=== PATIENT | male | born 1990 | race Caucasian/White ===

== ENCOUNTER 2023-07-09 12:35 | Emergency (ER) | payer OTHER, SELFPAY ==
[2023-07-09 12:42] VITALS: BP 145/117
[2023-07-09] MEDS: DECADRON 10 MG IM (13:34)
[2023-07-09] MEDS: LIDOCAINE 4% PATCH 1 PATCH TOPICAL (13:34)
[2023-07-09] MEDS: PERCOCET 5/325 1 TABLET PO (13:35)
--- NOTE | 2023-07-09 13:47 | ED.GENMED ---
History of Present Illness
General
Chief Complaint: Back Pain
Source: patient
Time Seen by Provider: 07/09/23 13:03
Travel History
Have you had any contact with someone who has COVID-19?: No
Do you have any symptoms of coronavirus? Fever > 100 degrees, chills, cough, shortness of breath, sore throat, loss of taste or smell, muscle aches, or headache?: No
History of Present Illness
History of Present Illness:
33-year-old male with no significant past medical history presented emergency department for evaluation of right-sided back pain that has been ongoing for the last 2 to 3 days, has a chronic issue with this every few months for the last few years,
states today seems to be the worst it has been noting the pain will intermittently radiate down his right leg especially with any forward bending movements. Patient attempted Advil around 11:30 AM with no relief. He states he does do a lot of
heavy lifting for work and thinks this could potentially be the cause for his exacerbating pain. He denies any fevers, chills, rigors, bowel or urinary incontinence, saddle anesthesia, focal weakness or numbness, history of IV drug abuse, diabetes.
Patient notes that he has tried chiropractic in the past but states this only seem to exacerbate his symptoms. Has never had any imaging done of his back either.
Past History
Past History
ED Past Medical History: None
ED Past Surgical History: None
Social History
Tobacco: Non-smoker
Alcohol: None
Drug: None
Personal: Single
Living: with family
Employment: Employed
Review of Systems
Review of Systems
All Other Systems: ROS reviewed and negative except as documented in HPI and ROS
Phy Exam
Physical Exam
Physical Exam:
GENERAL: Alert , appears quite uncomfortable, unable to sit down and pacing in the room
EYE: clear conjunctiva b/l
NECK: Supple
ENT: o/p clr, mmm.
BACK: limited range of motion 2/2 pain, ttp right paralumbar region, no midline bony tenderness, no rashes
NEUROLOGICAL: Alert and oriented, no focal neuro deficits. sensation grossly intact and equal to light touch bilateral lower extremities
SKIN: Warm and dry, skin intact.
MUSCULOSKELETAL: No edema, well perfused. EHL intact bilaterally
PSYCH: Normal and appropriate interaction.
Scores
Heart Failure Risk
Heart Failure Risk Score: Not Applicable
Heart Score for Chest Pain Patients
STEMI patient?: Not applicable
Withdrawal Assessment of Alcohol
Withdrawal Assessment Completed?: Not applicable
Course
Orders/Labs/Results
Orders:
Orders
07/09/23 13:14
Lidocaine [Lidocaine 4% Patch] 1 patch TOPICAL NOW STA
Oxycodone/Acetaminophen [Percocet 5/325] 1 tablet PO NOW STA
07/09/23 13:15
Dexamethasone Sod Phosphate [Decadron] 10 mg IM NOW STA
07/09/23 14:59
CR Lumbar Spine Comp Min 4 Vw* Urgent
Comment:
Reason For Exam: low back pain
Vital Signs
Initial and Last Documented VS:
Initial Vital Signs
Temp Pulse Resp BP Pulse Ox
97.6 F 108 18 145/117 96
07/09/23 12:42 07/09/23 12:42 07/09/23 12:42 07/09/23 12:42 07/09/23 12:42
Last Documented Vital Signs
Temp Pulse Resp BP Pulse Ox
97.6 F 77 16 151/87 97
07/09/23 12:42 07/09/23 15:57 07/09/23 15:57 07/09/23 15:57 07/09/23 15:57
MDM/Problems Addressed
Differential Diagnosis Includes:
Disc herniation, nerve impingement, spinal stenosis, lumbar strain, I do not have concern for infectious etiology nor cauda equina
MDM/Problems Addressed:
33-year-old male present emergency department for evaluation of an exacerbation of chronic back pain although noting today seems to be a little bit worse than usual. Believes likely trigger was from lifting something heavy at work. Pain is greatly
exacerbated by any attempted movement or sitting. Patient states that he is attempted muscle relaxants in the past and these do not give him any relief. He already took NSAIDs an hour prior to arrival so we will treat with a steroid, Lidoderm
patch and Percocet here. Will send home with medications as well and information for orthopedics to follow-up with
*Radiology
Radiology exam reviewed: preliminary read by ED provider (No acute abnormalities)
*Pulse Oximetry
Patient hypoxic: no
*Critical Care Note
Total Time (30-74mins, 75-104mins- exclusive of procedures): Not Applicable
Patient Management
Escalation/DeEscalation of care consider admission/obs:
Patient feeling better following medications. He was noted to be sitting which he states he was unable to do prior to the medications. Will send prescriptions for Percocet and Medrol Dosepak to pharmacy. Continue with NSAIDs and topical agents as
needed. Aware of return precautions and otherwise stable for discharge home
ED Attending Note
-
Portions of this chart may have been created with voice recognition software.� Occasional wrong word or��sound alike� substitutions may have occurred due to the inherent limitations of voice recognition software.
Discharge Plan
Departure
Patient Disposition: Home (Routine Discharge)
Date of Disposition: 07/09/23
Time of Disposition: 15:46
Patient with high blood pressure during this ER visit?: Yes
Discharge Problem:
Low back pain
Instructions: Low Back Pain (DC)
Prescriptions:
New
oxycodone-acetaminophen [Percocet] 5-325 mg tablet
1 tab PO Q6HPRN PRN (Reason: pain) Qty: 8 0RF
methylprednisolone [Medrol (Deo)] 4 mg tablets,dose pack
4 mg PO DIRECTED Qty: 21 0RF
No Action
hydrocodone-ibuprofen 1 TAB tablet
1 tab PO .Q4-6HPRN PRN (Reason: pain) Qty: 20 0RF
Referrals:
Betty Mcpherson PA-C [Family Provider] -
Stand Alone Forms: Return to Work
Interventions
Interventions:
*Risk Screen - Suicide Last Done: 07/09/23 12:42
*General Assessment Last Done: 07/09/23 12:42
*Neglect/Abuse Screening Last Done: 07/09/23 12:42
ED- Fall Risk Assessment Last Done: 07/09/23 15:57
*ED COVID-19 Vaccine History Last Done: 07/09/23 13:32
*Nursing Disposition Last Done: 07/09/23 15:57
ED-Musculoskeletal Assessment Last Done: 07/09/23 13:32
Discharge Date and Time
Discharge Date/Time: 07/09/23 15:58
Print Language: [id number]
[2023-07-09 14:54] VITALS: BP 145/92
[2023-07-09 15:57] VITALS: BP 151/87
== END 2023-07-09 15:58 | disposition home or self-care (01) ==
LOC: EMR 12:35
PROVIDERS: EMERGENCY PHYSICIAN Emergency Medicine; FAMILY PHYSICIAN Physician Assistant Medical
DX: M54.50 Low back pain, unspecified (principal); X58.XXXA Exposure to other specified factors, initial encounter; R03.0 Elevated blood-pressure reading, without diagnosis of hypertension; Y99.0 Civilian activity done for income or pay
CPT/HCPCS: 99284; 96372; 72110